=== PATIENT | male | born 1985 | race Caucasian/White ===

== ENCOUNTER → 2024-09-08 | Outpatient (CLI) | payer BC ==
[2024-09-08 13:22] VITALS: BP 126/77; PULSE 56; RESP 16; TEMP 98.9
--- NOTE | 2024-09-08 14:00 | P.SLEEP ---
History of Present Illness DATE: 09/08/2024 CONSULTATION/NEW PATIENT EVALUATION HISTORY OF PRESENT ILLNESS/SLEEP-WAKE EVALUATION: 39-year-old gentleman had been evaluated in the sleep center for possible obstructive sleep apnea hypopnea syndrome. 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 FALLING ASLEEP: Sometimes patient has difficulties with falling asleep. DURING SLEEP: Patient wakes up from sleep 3 times with 2 episodes of nocturia. Positive episodes of witnessed sleep apneas by his . No history of hypnogogical hallucinations, sleep paralysis, or cataplexy. DURING THE DAY/WAKE STATE: Patient feels sleepiness during the day. [place] sleepiness scale is increased to 10. Usually patient does not take naps. PAST MEDICAL HISTORY: Irritable bowel syndrome. PAST SURGICAL HISTORY: None. MEDICATIONS: None. SOCIAL HISTORY: Please see below. FAMILY HISTORY: Cancer, diabetes, epilepsy. REVIEW OF SYSTEMS: Multiple awakenings from sleep, episodes of sleepiness during the day. No fevers. No double vision. No recent chest pain. No shortness of breath. No abdominal pain. No bleeding episodes. No blood in urine. No seizure episodes. PHYSICAL EXAMINATION: GENERAL: A pleasant patient without any distress. VITAL SIGNS: Please see below, weight is 243 pounds, BMI 35.3. HEENT: PERRLA, EOMI. Evaluation of oropharynx showed tongue protrudes midline, low position of soft palate Mallampati 4. NECK: Supple. No JVD. Thyroid is not palpable. 17 inches in circumference. LUNGS: Clear to percussion and to auscultation. Good air exchange. No wheezing or rhonchi. HEART: S1, S2 regular. No murmurs, gallops or rubs. ABDOMEN: Soft and nontender. Bowel sounds are present. No organomegaly appreciated. EXTREMITIES: No clubbing or cyanosis. FURNACE LINER: Awake, alert, and oriented x3. Cranial nerves 2 to 7 intact. There is no fasciculation or atrophy noted. No focal deficits observed. ASSESSMENT: 1. Multiple awakenings from sleep, witnessed episodes of stop breathing during the sleep by , extremely low position of soft palate Mallampati 4, wide neck 17 inches in circumference, sleepiness with [place] Sleepiness Scale 10. Obstructive sleep apnea hypopnea syndrome. 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 3. Irritable bowel syndrome. 4. Obesity, BMI 35.3. 5. 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 PLAN: 1. Polysomnography for evaluation of patient's breathing during sleep. 2. Following plan after reading sleep study 3. Preferable position during sleep on the side. 4. No driving if patient feels any sleepiness. Patient is aware of civil and criminal liability for unsafe driving. 5. Sleep hygiene with regular sleep time for at least 7.5-8 hours. 6. Watching and losing weight. Thank you very much for referring this patient for consultation. Sincerely, Jarad Davison MD, PhD, FAASM. Diplomat of [place] [employer], Sleep Medicine Board by [place] [employer] Supervisor of [facility] [place] cc: Renny Graham DO Past Medical History Past Medical History: Pneumonia Additional Past Medical History / Comment(s): bronchitis, diarrhea, occ blood in stool, History of Any Multi-Drug Resistant Organisms: None Reported Past Surgical History: Hernia Repair Additional Past Surgical History / Comment(s): colonoscopy Past Anesthesia/Blood Transfusion Reactions: No Reported Reaction Past Psychological History: No Psychological Hx Reported Smoking Status: Current some day smoker Past Alcohol Use History: Occasional Additional Past Alcohol Use History / Comment(s): cigar occ. Past Drug Use History: None Reported - Past Family History Mother Family Medical History: No Reported History Medications and Allergies Home Medications Medication Instructions Recorded Confirmed Type No Known Home Medications 09/16/17 09/18/17 History Allergies Allergy/AdvReac Type Severity Reaction Status Date / Time No Known Allergies Allergy Verified 09/18/17 11:42 Physical Exam Vitals: Vital Signs Temp Pulse Resp BP Pulse Ox 09/08/24 13:20 98.9 F 56 L 16 126/77 98 Intake and Output 09/07/24 09/08/24 09/08/24 22:59 06:59 14:59 Other: Weight 110.223 kg Sleep Note - Sleep Data ESS Total: 6 - Sleep Note Sleep Note: Temperature: 98.9 F Pulse Rate: 56 Respiratory Rate: 16 Blood Pressure: 126/77 SpO2: 98 Height: 5 ft 9.5 in Weight: 110.223 kg BMI: Neck Circumference: 17
== END ==
LOC: 3 N SLEEP 13:03
PROVIDERS: ATTEND Internal Medicine
CPT/HCPCS: 99211

== ENCOUNTER 2024-09-22 19:36 | Outpatient (CLI) | payer BC ==
--- NOTE | 2024-10-06 10:38 | P.PCN ---
Description of Procedure: POLYSOMNOGRAPHY REPORT PROCEDURE(S)/DATE(S): Polysomnography 09/22/2024 CLINICAL: Patient has been seen in the sleep center for evaluation of obstructive sleep apnea-hypopnea syndrome. Please see my consultation. Sleep study has been done for evaluation of patient breathing during the sleep. PROCEDURE: The standard montage for clinical polysomnography included the electroencephalogram, the electrooculogram, the mentalis surface electromyography and Lead II cardiography. The respiratory battery consisted of measurements of nasal/buccal air flow, pressure transducer measurements from nose, thoracic and/or abdominal effort and intercostal surface electromyography. Video monitoring has been done to check for any parasomnia events. Nocturnal oxyhemoglobin saturations were obtained by finger oximetry. Step-henderson titration with positive airway pressure was utilized to control the respiratory events, if necessary. RESULTS: During the diagnostic sleep study sleep efficiency was decreased to 77.7%. Latency to sleep onset was prolonged to 33.0 min. Sleep architecture showed stage NI practically normal 7.5%, Delta sleep was absent 0%, REM sleep was short 13.1%. Respiratory channel showed 11 obstructive apneas, 1 mixed apneas, 0 central apneas, 24 hypopneas with lowest oxygen level 85%. Total apnea hypopnea index was 6.3. Heart rate was in the range between 55 and 66, average 60. EMG showed 35.0 periodic limb movements per hour with 0 micro-arousals per hour. IMPRESSIONS: 1. Obstructive sleep apnea hypopnea syndrome. 2. Significant periodic limb movements have been documented. Please see other impressions from consultation PLAN: 1. The patient will have AutoPAP treatment for correction of respiratory abnormalities during the sleep. 2. Losing weight program. 3. Sleep hygiene with regular time in bed for at least 7-1/2 hours. 4. No driving if feeling sleepiness. 5. Please check iron profile including ferritin level. Low level of iron may increase the risk for periodic limb movements. 6. I will see patient for follow-up visit to explain results of the sleep study, evaluate clinical response on treatment with CPAP and make any necessary adjustments related to mask fitting pressure and humidification Thank you very much for allowing me to participate in the management of your patient. Sincerely, Jarad Davison MD, PhD, FAASM. Diplomat of [place] [employer], Sleep Medicine Board by [place] [employer] System Manager of [facility] [place] cc: Renny Graham DO
== END 2024-09-23 05:27 | disposition home or self-care (01) ==
LOC: 3 N SLEEP 19:36
PROVIDERS: ATTEND Internal Medicine
DX: G47.33 Obstructive sleep apnea (adult) (pediatric) (principal); G47.61 Periodic limb movement disorder; F17.200 Nicotine dependence, unspecified, uncomplicated
CPT/HCPCS: 95810

== ENCOUNTER → 2025-03-23 | Outpatient (CLI) | payer BC ==
[2025-03-23 16:30] VITALS: BP 125/81; PULSE 76; RESP 16; TEMP 98.3
--- NOTE | 2025-03-23 16:48 | P.PROGSL ---
Subjective DATE: 03/23/2025 FOLLOW UP VISIT. Patient with obstructive sleep apnea hypopnea syndrome return to sleep center for follow-up visit. Information from previous visit have been reviewed. Patient had extended trial for CPAP treatment. Patient is using PAP equipment every night for the whole night presently, getting PAP supplies in time. The patient does not have significant problems with the mask, PAP unit and humidification. [place] sleepiness scale is slightly increased to 11. Sometimes patient has difficulties with falling asleep. I prescribed for him Ambien during previous visit at low-dose 5 mg. And with this medication patient is able to fall asleep quite well. He is not using Ambien every night only if necessary. I checked information from PAP unit. PAP unit pressure 5-15, average 6.4 cm H2O. Usage is 98% and 80% for more then 4 hours, average 6 hours per night. Leak is 14.7 l/m, which is in acceptable range. Apnea Hypopnea Index is 0.3, which is perfect. Patient may have some leg movements during the sleep, but it does not wake him up from sleep MEDICATIONS have been reviewed, please see below. During physical exam: GENERAL: A pleasant patient without any distress. VITAL SIGNS: Please see below, weight is 229 lbs. HEENT: PERRLA, EOMI.low position of soft palate, Mallapati 4. NECK: Supple. No JVD. LUNGS: Clear to percussion and to auscultation. Good air exchange. No wheezing or rhonchi. HEART: S1, S2 regular. ABDOMEN: Soft and nontender.[] EXTREMITIES: No clubbing or cyanosis. MEDICAL SUPPORT ASSISTANT: Awake, alert, and oriented x3. No focal deficit. Impressions: 1. Obstructive sleep apnea-hypopnea syndrome. Patient demonstrated great compliance with treatment, benefiting from treatment. 2. Insomnia episodes. Ambien 5 mg helps patient to fall asleep well. He is using Ambien only if necessary. 3. Periodic limb movement still present, but patient does not wake up with relationship to leg movements. 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 5. Mild obesity, BMI 33.3. 6. History of irritable bowel syndrome. Plan: 1. Continue using PAP equipment every night for the whole night. 2. Sleep hygiene with regular time in bed for at least 7.5-8 hours 3. PAP unit should stay lower then position of the head. 4. Advised patient to remove all remaining water from humidifier canister daily and make it dry after each usage. Refill canister with fresh distilled water before each usage. 5. Watching weight. 6. Precautions related to driving. No driving if feel any sleepiness. 7. I will maintain prescription for PAP supplies including mask, tube, filters. 8. Follow up visit in 8 months or earlier if patient has any problems. 9. We will maintain prescription for Ambien 5 mg if needed. Thank you very much for allowing me to participate in the management of your patient. Jarad Davison MD, PhD, FAASM. Diplomat of [place] [employer], Sleep Medicine Board by [place] [employer] [facility] [place] cc: Renny Graham DO Objective - Vital Signs Vital Signs: Vital Signs Temp 98.3 F 03/23/25 16:28 Pulse 76 03/23/25 16:28 Resp 16 03/23/25 16:28 BP 125/81 03/23/25 16:28 Pulse Ox 96 03/23/25 16:28 FiO2 Intake & Output 03/22/25 03/23/25 03/23/25 18:59 06:59 18:59 Weight 103.873 kg Home Medications: Home Medications Medication Instructions Recorded Confirmed Type No Known Home Medications 09/16/17 09/18/17 History
== END ==
LOC: 3 N SLEEP 15:37
PROVIDERS: ATTEND Internal Medicine
DX: G47.33 Obstructive sleep apnea (adult) (pediatric) (principal); G47.61 Periodic limb movement disorder; F17.200 Nicotine dependence, unspecified, uncomplicated; E66.9 Obesity, unspecified; Z68.33 Body mass index [BMI] 33.0-33.9, adult; Z99.89 Dependence on other enabling machines and devices; Z87.19 Personal history of other diseases of the digestive system
CPT/HCPCS: 99212